=== PATIENT | male | born 1945 | race Caucasian/White ===

== ENCOUNTER → 2016-12-01 | Outpatient (CLI) | payer MEDICARE, OTHER ==
[~2016-12-01] MED LIST: SIMV20TA3 PO; WARF5TAB7 PO; WARF7.5T6 PO
[2016-12-01 09:49] LABS: PATH.CAST-FLAG NOT PRESENT; SPERM-FLAG NOT PRESENT; XTAL-FLAG NOT PRESENT; YLC-FLAG NOT PRESENT
== END | disposition home or self-care (01) ==
LOC: STAR 08:17
PROVIDERS: ATTEND Urology
DX: Z01.818 Encounter for other preprocedural examination (principal); N20.0 Calculus of kidney
CPT/HCPCS: 81001; 87086; 93005

== ENCOUNTER 2016-12-05 10:57 | Day surgery (SDC) | payer MEDICARE, OTHER ==
[~2016-12-05] VITALS: Ht 193 cm; Wt 100.0 kg
[~2016-12-05 10:57] MED LIST changes: +FENTANYL PF 250 MCG/5ML ONE; +MIDAZOLAM 1 MG/ML, 2ML ONE
[2016-12-05] MEDS ORDERED: LACTATED RINGERS 1,000 ML IV SCH (11:17)
[2016-12-05 11:18] VITALS: BP 107/72
[2016-12-05] MEDS ORDERED: PRED20TA PO (11:24)
[2016-12-05] MEDS ORDERED: CIPR500T87 PO (11:24)
[2016-12-05] MEDS ORDERED: ACET-709 PEG (11:24)
[2016-12-05] MEDS ORDERED: LIDOCAINE 1%, 2ML SQ PRN (11:30)
[2016-12-05] MEDS ORDERED: ONDANSETRON 2MG/ML, 2ML ONE (13:46)
[2016-12-05] MEDS ORDERED: PROPOFOL 10 MG/ML, 20ML ONE (13:46)
[2016-12-05] MEDS ORDERED: PHENYLEPHRINE 10 MG/ML ONE (13:46)
[2016-12-05] MEDS ORDERED: DEXAMETHASONE 4 MG/ML, 1ML ONE (13:46)
[2016-12-05] MEDS ORDERED: CEFAZOLIN 1,000 MG ONE (13:46)
[2016-12-05] MEDS ORDERED: EPHEDRINE 50 MG/ML, 1ML ONE (13:46)
[2016-12-05] MEDS ORDERED: ACETAMINOPHEN 325 MG TABLET PO PRN (14:30)
[2016-12-05] MEDS ORDERED: HYDROcodone/APAP 7.5-325MG/15ML UDC PO PRN (14:30)
[2016-12-05] MEDS ORDERED: FENTANYL PF 100 MCG/2ML IV PRN (14:30)
[2016-12-05] MEDS ORDERED: HYDROmorphone 1 MG/ML, 1ML IV PRN (14:30)
[2016-12-05] MEDS ORDERED: ONDANSETRON 2MG/ML, 2ML IVPush PRN (14:30)
[2016-12-05] MEDS ORDERED: PROMETHAZINE 25 MG/ML, 1ML IV PRN (14:30)
[2016-12-05] MEDS ORDERED: OXYcodone 5 MG/5 ML ORAL.SOL UDC PO PRN (14:30)
[2016-12-05] MEDS ORDERED: OMNIPAQUE 350 MG/ML, 50 ML BOTTLE ONE (14:53)
== END 2016-12-05 16:45 | disposition home or self-care (01) ==
LOC: OUT 10:57
PROVIDERS: ATTEND Urology
DX: N20.0 Calculus of kidney (principal); Z86.718 Personal history of other venous thrombosis and embolism; Z79.01 Long term (current) use of anticoagulants; E78.00 Pure hypercholesterolemia, unspecified; Z87.440 Personal history of urinary (tract) infections; Z72.89 Other problems related to lifestyle
CPT/HCPCS: 36415; 52353; 74420; 85610; 85730; C1758; C1769; J0690; J1100; J2370; J2405; J2704; J3010; J7120; Q9967; J2250